=== PATIENT | male | born 1990 ===

== ENCOUNTER 2018-12-06 13:35 | Emergency (ER) | payer SELFPAY ==
--- NOTE | 2018-12-06 13:59 | Event Note ---
ED Screening Note ED Screening Note: responding to aliens no si no hi rx risperidol trazadone not taking meds for a month FAUSTINO tells him things psychosis eating soap in triage This initial assessment/diagnostic orders/clinical plan/treatment(s) is/are subject to change based on patients health status, clinical progression and re-assessment by fellow clinical providers in the ED. Further treatment and workup at subsequent clinical providers discretion. Patient/guardian urged not to elope from the ED as their condition may be serious if not clinically assessed and managed. Initial orders include: rosemary zamora
== END 2018-12-06 15:00 | disposition left against medical advice (07) ==
LOC: ED 13:35
DX: F31.9 Bipolar disorder, unspecified (principal); Z53.21 Procedure and treatment not carried out due to patient leaving prior to being seen by health care provider